=== PATIENT | female | born 1950 | race Caucasian/White ===

== ENCOUNTER 2025-05-17 08:33 | Day surgery (SDC) | payer MEDICARE, BC ==
[2025-05-17] VITALS (7 sets, daily range): BP systolic 102–164; BP diastolic 69–114; PULSE 44–89; RESP 8–14; TEMP 97.8; O2SAT 92–98
[~2025-05-17] VITALS: Ht 165.1 cm; Wt 74.3 kg
--- NOTE | 2025-05-17 09:06 | ELECTROCARDIOGRAPH REPORT ---
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 JOSE Styles Measurements Intervals [place] Rate: 76 P: 0 NE: 0 QRS: 4 QRSD: 98 T: 17 QT: 418 QTc: 471 Interpretive Statements Atrial fibrillation Electronically Signed On 05-17-2025 13:52:[address] JOSE Styles Please click the below link to view image of tracing.
[2025-05-17] MEDS ORDERED: MIDAZolam 1mg/ml 10ml vial IV ONE (09:20)
[2025-05-17] MEDS ORDERED: fentaNYL/PF 50MCG/1 ML 2ML syringe IV ONE (09:20)
[2025-05-17] MEDS ORDERED: APIX5TAB3 PO (09:23)
[2025-05-17] MEDS ORDERED: LEVO112T39 PO (09:23)
[2025-05-17] MEDS ORDERED: FLEC50TA PO (09:23)
[2025-05-17] MEDS ORDERED: LEVO100T78 PO (09:23)
[2025-05-17] MEDS ORDERED: METO-395 PO (09:23)
[2025-05-17] MEDS ORDERED: ESTR1PAT95 TD (09:23)
[2025-05-17] MEDS ORDERED: ESTR42.510 (09:23)
[2025-05-17] MEDS ORDERED: CHOL20004 PO (09:30)
[2025-05-17] MEDS ORDERED: OMEG1CAP46 PO (09:30)
[2025-05-17] MEDS ORDERED: Magnesium PO (09:30)
[2025-05-17] MEDS ORDERED: Calcium PO (09:30)
[2025-05-17] MEDS ORDERED: ASCO10004 PO (09:30)
[2025-05-17] MEDS ORDERED: Fish Oil PO (09:30)
[2025-05-17] MEDS ORDERED: Tumeric PO (09:30)
[2025-05-17] MEDS ORDERED: MULT-1085 PO (09:30)
[2025-05-17] MEDS ORDERED: FLAX10007 PO (09:30)
[2025-05-17] MEDS: normal saline 1000ml 1,000 ML IV SCH (09:32)
[2025-05-17 09:39] LABS: MEAN PLATELET VOLUME 8.0 FL (7.4-10.4); RED CELL DISTRIBUTION WIDTH 13.8 % (11.5-14.5)
[2025-05-17 09:44] LABS: CREATININE 0.80 MG/DL (0.40-0.90); TOTAL CARBON DIOXIDE 27.3 MMOL/L (24-32); eCRCL 55 ML/MIN; eGFR 70 ML/MIN
[2025-05-17 09:46] LABS: INR 1.1 INR
[2025-05-17] MEDS ORDERED: amiodarone 50MG/ML inj IV ONE (10:08)
[2025-05-17] MEDS ORDERED: midazolam 1 mg/ML 2ml injection ONE ×2 (10:09→10:26)
[2025-05-17] MEDS ORDERED: atropine 0.1mg/ml 10ml syringe ONE (10:09)
[2025-05-17] MEDS ORDERED: fentaNYL/PF 50MCG/1 ML 2ML syringe ONE (10:09)
--- NOTE | 2025-05-17 10:50 | CARDIOLOGY REPORT ---
DATE OF SERVICE: 05/17/2025 DICTATING PHYSICIAN: ABISAI MORAES DO PROCEDURE NOTE PROCEDURE: DC cardioversion. PREPROCEDURAL DIAGNOSIS: Atrial fibrillation. POSTPROCEDURAL DIAGNOSIS: Atrial fibrillation, cardioverted to sinus rhythm. DESCRIPTION OF PROCEDURE: The patient was sedated with fentanyl and Versed. She was then given one 200 joules synchronized shock resulting in conversion to sinus rhythm. COMPLICATIONS: There were no complications. PLAN: Ongoing medical therapy. FINAL DIAGNOSIS: Atrial fibrillation, cardioverted to sinus rhythm. ABISAI MORAES DO TID: [id number] RECEIPT: [id number] TROY/WILL/KIKI
--- NOTE | 2025-05-17 11:08 | ELECTROCARDIOGRAPH REPORT ---
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 JOSE Styles Measurements Intervals [place] Rate: 42 P: 36 DC: 175 QRS: 22 QRSD: 94 T: 55 QT: 461 QTc: 386 Interpretive Statements Sinus bradycardia Electronically Signed On 05-17-2025 13:52:[address] JOSE Styles Please click the below link to view image of tracing.
== END 2025-05-17 12:30 | disposition home or self-care (01) ==
LOC: EDSEX 08:33 → SSTAY O 08:33
PROVIDERS: ATTEND Internal Medicine Cardiovascular Disease
DX: I48.0 Paroxysmal atrial fibrillation (principal); E03.9 Hypothyroidism, unspecified; Z79.899 Other long term (current) drug therapy; Z90.89 Acquired absence of other organs; Z90.49 Acquired absence of other specified parts of digestive tract; Z98.890 Other specified postprocedural states
CPT/HCPCS: 36415; 80048; 83735; 85025; 85610; 92960; 93005; J2250; J3010; J7030; 99152; J0282; J0461

== ENCOUNTER 2025-05-31 09:16 | Day surgery (SDC) | payer MEDICARE, BC ==
[~2025-05-31] VITALS: Ht 165.1 cm; Wt 72.8 kg
[~2025-05-31 09:16] MED LIST: APIX5TAB3 PO; ASCO10004 PO; CHOL20004 PO; Calcium PO; ESTR1PAT95 TD; ESTR42.510; FLAX10007 PO; FLEC50TA PO; Fish Oil PO; LEVO100T78 PO; LEVO112T39 PO; METO-395 PO; MULT-1085 PO; Magnesium PO; OMEG1CAP46 PO; Tumeric PO
--- NOTE | 2025-05-31 09:51 | ELECTROCARDIOGRAPH REPORT ---
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 JOSE Styles Measurements Intervals [place] Rate: 87 P: 0 [place]: 0 QRS: -4 QRSD: 101 T: 41 QT: 385 QTc: 463 Interpretive Statements Atrial flutter Electronically Signed On 05-31-2025 17:11:[address] JOSE Styles Please click the below link to view image of tracing.
[2025-05-31] MEDS ORDERED: fentaNYL/PF 50MCG/1 ML 2ML syringe IV ONE (10:05)
[2025-05-31] MEDS ORDERED: MIDAZolam 1mg/ml 10ml vial IV ONE (10:05)
[2025-05-31] MEDS ORDERED: LEVO112T39 PO (10:09)
[2025-05-31 10:30] VITALS: BP 136/62; PULSE 56; RESP 14; RESP 15; TEMP 97.9; O2SAT 95; O2SAT 98
[2025-05-31] MEDS: normal saline 1000ml 1,000 ML IV SCH (10:36)
[2025-05-31] MEDS ORDERED: fentaNYL/PF 50MCG/1 ML 2ML syringe ONE (10:40)
[2025-05-31] MEDS ORDERED: atropine 0.1mg/ml 10ml syringe ONE (10:40)
[2025-05-31] MEDS ORDERED: midazolam 1 mg/ML 2ml injection ONE (10:40)
[2025-05-31] MEDS ORDERED: amiodarone 50MG/ML inj IV ONE (10:40)
[2025-05-31 10:41] LABS: MEAN PLATELET VOLUME 7.5 FL (7.4-10.4); RED CELL DISTRIBUTION WIDTH 13.4 % (11.5-14.5)
[2025-05-31 10:52] LABS: CREATININE 0.81 MG/DL (0.40-0.90); TOTAL CARBON DIOXIDE 30.9 MMOL/L (24-32); eCRCL 54 ML/MIN; eGFR 69 ML/MIN
[2025-05-31 10:53] LABS: INR 1.1 INR
[2025-05-31 11:10] VITALS: BP 141/83; PULSE 53; RESP 11; O2SAT 94
[2025-05-31 11:20] VITALS: BP 134/81; PULSE 51; RESP 12; O2SAT 93
[2025-05-31 11:30] VITALS: BP 126/69; PULSE 56; RESP 11; O2SAT 94
--- NOTE | 2025-05-31 11:34 | ELECTROCARDIOGRAPH REPORT ---
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 JOSE Styles Measurements Intervals [place] Rate: 54 P: 60 W[place]: 196 QRS: -2 QRSD: 93 T: 50 QT: 488 QTc: 463 Interpretive Statements Sinus rhythm Electronically Signed On 05-31-2025 17:11:[address] JOSE Styles Please click the below link to view image of tracing.
--- NOTE | 2025-05-31 13:18 | CARDIOLOGY REPORT ---
DATE OF SERVICE: 05/31/2025 DICTATING PHYSICIAN: ABISAI MORAES DO REFERRING PHYSICIAN: Skye Garcia MD PROCEDURE: DC cardioversion. PREPROCEDURAL DIAGNOSIS: Atrial fibrillation. POSTPROCEDURAL DIAGNOSIS: Atrial fibrillation, cardioverted to sinus rhythm. DESCRIPTION OF PROCEDURE: The patient was sedated with fentanyl and Versed. She was then given one 200 joules synchronized shock resulting in reversion to sinus rhythm. COMPLICATIONS: There were no complications. PLAN: Ongoing medical therapy. FINAL DIAGNOSIS: Atrial fibrillation, cardioverted to sinus rhythm. ABISAI MORAES DO TID: [id number] RECEIPT: [id number] /[facility] [place]
== END 2025-05-31 12:45 | disposition home or self-care (01) ==
LOC: SSTAY O 09:16
PROVIDERS: ATTEND Internal Medicine Cardiovascular Disease
DX: I48.0 Paroxysmal atrial fibrillation (principal); I48.92 Unspecified atrial flutter; E03.9 Hypothyroidism, unspecified; Z79.01 Long term (current) use of anticoagulants; Z79.899 Other long term (current) drug therapy; Z90.49 Acquired absence of other specified parts of digestive tract; Z90.89 Acquired absence of other organs; Z98.890 Other specified postprocedural states; Z88.0 Allergy status to penicillin
CPT/HCPCS: 36415; 80048; 83735; 85025; 85610; 92960; 93005; J0461; J2250; J3010; J7030; Z7610; 99152; J0282